=== PATIENT | female | born 1950 | race Caucasian/White ===

== ENCOUNTER 2018-05-06 07:00 | Inpatient (IN) ==
[2018-06-10] MEDS ORDERED: ceFAZolin Inj 2gm (Premix) 2 GM/50 ML BAG IV ONE ×2 (06:00→06:11)
[2018-06-10] MEDS ORDERED: Nasal Sanitizer POPSWAB ampule 3 AMP (Nozin) PREOP DOSE ENOS SCH (06:00)
[2018-06-10] MEDS ORDERED: Tranexamic Acid 1,000 MG in Sodium Chloride 0.9% 100 ML IV SCH (06:00)
[2018-06-10] MEDS ORDERED: BUPivacaine Liposome/PF (Exparel) Inj 20ml vial INFIL ONE ×2 (06:00→09:22)
[2018-06-10] MEDS ORDERED: LIDOCAINE W/ SODIUM BICARB 0.5 ML SYR SUBD ONE (06:00)
[2018-06-10] MEDS ORDERED: Ketorolac Inj 30 MG, Morphine Inj (Ortho Cocktail) 5 MG, BUPivacaine Inj 0.25% PF 150 MG SPLASH ONE ×3 (06:00)
[2018-06-10] MEDS ORDERED: Lactated Ringers 1,000 ML PRIMARY IV ONE (06:12)
[2018-06-10] MEDS ORDERED: LIDOCAINE W/ SODIUM BICARB 0.5 ML SYR ONE (06:12)
[2018-06-10] MEDS ORDERED: fentaNYL Inj 250 MCG/5 ML VIAL ONE (09:09)
[2018-06-10] MEDS ORDERED: DEXAMETHASONE PF 10 MG/1 ML VIAL ONE (09:09)
[2018-06-10] MEDS ORDERED: Propofol 2,000 MG/200 ML VIAL IV ONE (09:10)
[2018-06-10] MEDS ORDERED: SUCCINYLCHOLINE CHLORIDE 20 MG/1 ML - 10 ML ONE (09:11)
[2018-06-10] MEDS ORDERED: ROCURONIUM 10 MG/1 ML - 5 ML VIAL IVP ONE (09:11)
[2018-06-10] MEDS ORDERED: MIDAZOLAM HCL 2 MG/2 ML VIAL ONE (09:17)
[2018-06-10] MEDS ORDERED: Sodium Chloride 0.9% vial 40 ML ONE (09:21)
[2018-06-10] MEDS ORDERED: Gentamicin Inj 40 MG/ML VIAL ONE (09:21)
[2018-06-10] MEDS ORDERED: HEPARIN 10,000 UNIT/1 ML ONE (09:21)
[2018-06-10] MEDS ORDERED: Sodium Chloride 0.9% 2,000 ML PRIMARY IV ONE (09:25)
[2018-06-10] MEDS ORDERED: Sodium Chloride 0.9% 250 ML ONE ×2 (09:25→13:59)
[2018-06-10] MEDS: Lactated Ringers 1,000 ML PRIMARY IV SCH ×3 (09:44→16:21)
[2018-06-10 09:49] LABS: BILIRUBIN,URINE NEGATIVE (NEG); CLARITY,URINE CLEAR (CLEAR); COLOR,URINE YELLOW (Y); GLUCOSE, URINE (UA) NEGATIVE (NEG); OCCULT BLOOD,URINE Trace-intact (NEG); PH,URINE 7.5 (5.0-8.5); PROTEIN,URINE NEGATIVE (NEG); UROBILINOGEN,URINE 0.2 EU/dL (0.2)
[2018-06-10 09:50] LABS: URINE SAMPLE TYPE CLEAN CATCH URINE
[2018-06-10 09:53] LABS: BACTERIA,URINE RARE; RBC,URINE 0-1 /hpf; SQUAMOUS EPITHELIAL CELL,UR RARE; WBC,URINE RARE
[2018-06-10 10:21] LABS: BASOPHILS # (AUTO) 0.04 10*3/UL; EOSINOPHILS # (AUTO) 0.05 10*3/UL; EOSINOPHILS % (AUTO) 1.3 % (0-8); Hematocrit [HCT] 42.1 % (37.0-47.0); Hemoglobin [HGB] 14.1 g/dL (12.0-16.0); LYMPHOCYTES # (AUTO) 1.28 10*3/uL; MEAN CORPUSCULAR HEMOGLOBIN 32.1 PG (27-31); MEAN CORPUSCULAR HGB CONC 33.5 g/dL (33-37); MEAN CORPUSCULAR VOLUME 95.9 FL (81-99); MEAN PLATELET VOLUME 10.3 FL (7.4-12.2); MONOCYTES # (AUTO) 0.37 10*3/UL (0.3-0.8); MONOCYTES % (AUTO) 9.4 % (5-15); NEUTROPHILS % (AUTO) 55.8 % (50-80); PLATELET MORPHOLOGY COMMENT NORMAL MORPHOLOGY (NORM); RBC MORPHOLOGY COMMENT NORMAL MORPHOLOGY (NORM); RED BLOOD COUNT 4.39 10^6/uL (4.20-5.40); WBC MORPHOLOGY COMMENT NORMAL MORPHOLOGY (NORM)
--- NOTE | 2018-06-10 10:26 | CRNA.PROGR ---
Anesthesia Recovery Phase I - Post Anesthesia Evaluation Patient's Condition on Arrival in Phase I: Stable Patient's Condition on Arrival in Phase II: Stable Pain Level: 2
[2018-06-10] MEDS ORDERED: PROMETHAZINE 25 MG/1 ML VIAL IM PRN (10:30)
[2018-06-10] MEDS ORDERED: Lactated Ringers 1,000 ML PRIMARY IV SCH (10:30)
[2018-06-10] MEDS ORDERED: Sodium Chloride 0.9% 1,000 ML PRIMARY IV SCH (10:30)
[2018-06-10] MEDS ORDERED: LIDOCAINE W/ SODIUM BICARB 0.5 ML SYR SUBD PRN (10:30)
[2018-06-10] MEDS ORDERED: ONDANSETRON 4 MG/2 ML VIAL IVP PRN ×2 (10:30→15:20)
[2018-06-10] MEDS ORDERED: fentaNYL Inj 100 MCG/2 ML VIAL IVP PRN (10:30)
[2018-06-10 10:31] LABS: BLOOD UREA NITROGEN 21 mg/dL (7-22); SERUM ALBUMIN 4.1 g/dL (3.5-4.8)
[2018-06-10] MEDS ORDERED: TRANEXAMIC ACID 1,000 MG / 10 ML VIAL ONE (11:39)
[2018-06-10] MEDS ORDERED: ONDANSETRON 4 MG/2 ML VIAL ONE (12:50)
[2018-06-10] MEDS ORDERED: BUPivacaine Inj 0.5% PF (5mg/ml) 30ml vial ONE (13:17)
--- NOTE | 2018-06-10 14:35 | CRNA.PROGR ---
Anesthesia Time - Procedure/Recovery Time Start Date: 06/10/18 End Date: 06/10/18 Anesthesia : Time In: 10:55 Anesthesia : Time Out: 14:33 Anesthesia : Total Time: 218 - Total Anesthesia Time Total Anesthesia Time (minutes): 218 - Other Weight: 75.75 kg Height: 5 ft 6 in Body Mass Index (BMI): 26.9 Physical Status: P2 Anesthesia Type: General Anesthesia : ET
[2018-06-10] MEDS ORDERED: fentaNYL Inj 100 MCG/2 ML VIAL ONE (15:00)
--- NOTE | 2018-06-10 15:10 | ORTHO.OP ---
- - -: See Dictated Operative Report Procedure Codes - Hip Procedures Primary Hip Procedure: 08223 : BERNADETTE (karthik walker assisted)
[2018-06-10] MEDS ORDERED: IBUPROFEN 400 MG TABLET PO PRN (15:20)
[2018-06-10] MEDS ORDERED: Prochlorperazine Tab 10 MG TAB PO PRN (15:20)
[2018-06-10] MEDS ORDERED: MAG HYDROX/AL HYDROX/SIMETH 30 ML SUSP PO PRN (15:20)
[2018-06-10] MEDS ORDERED: BISACODYL 10 MG SUPPOSITORY RECTAL PRN (15:20)
[2018-06-10] MEDS ORDERED: diphenhydrAMINE 25 MG CAPSULE PO PRN (15:20)
[2018-06-10] MEDS ORDERED: HYDROmorphone 2 MG/1 ML IVP PRN (15:20)
[2018-06-10] MEDS ORDERED: Ondansetron ODT Tab 8 MG TAB PO PRN (15:20)
[2018-06-10] MEDS ORDERED: BISACODYL 5 MG TABLET PO PRN (15:20)
--- NOTE | 2018-06-10 17:42 | DI ---
AP PELVIS AND RIGHT HIP, 06/10/2018 11:15 AM: Clinical History: Status post right total hip replacement. Osteoarthritis. Previous Exam: 01/30/2018. Views: AP pelvis with AP and lateral views of replaced hip. Patient is status post right total hip replacement. Prosthetic joint articulates normally. Drain tube present. Reading: Status post right total hip replacement. Prosthetic joint articulates normally.
[2018-06-10] MEDS: ceFAZolin Inj 2gm (Premix) 2 GM/50 ML BAG IV SCH (19:06)
--- NOTE | 2018-06-10 21:35 | PDOC ---
HPI - History of Present Illness Date of Service: 06/10/18 Time of Service: 18:00 Chief Complaint: right hip pain History of Present Illness: This is a very pleasant 67 YO female with osteoarthritis and HTN who has had long standing right hip pain. She opted for a BERNADETTE with Dr. Cook, see his operative report. Hospitalist service was asked to evaluate and advise and address medical issue of hypertension in the setting of the surgery. Post operatively, the patient has well controlled blood pressures. The patient has not had any chest pain, shortness of breath, but did have some nausea. She states the block has not completely worn away. Post operative hip pain is well controlled. No exacerbating factors. She notes that she avoided opiates prior to surgery, but pain was limiting her activities severely and disturbed her slee p greatly. Past Medical History Medical History: 1. HTN. 2. Osteoarthritis Surgical History: 1) ankle surgery. 2) carpal tunnel. 3) hysterectomy with incidental appendectomy Pertinent Family History: She states both her parents suffered from osteoarthritis, as do her siblings. Her brother of cancer. Past Social History: does not smoke or drink alcohol. . has a healthy daughter. retired and lives in [place], [place] Tobacco Use: Never Smoker In the Past 12 Months, Have Used or Abuse Any of the Following Substance: None Alcohol Use: None Medication / Allergies Home Medications: Home Medications Medication Instructions Recorded Confirmed Type Calcium Carbonate/Vitamin D3 1 ea PO DAILY tab 03/16/13 06/10/18 History [Calcium 1,000 + D3 Caplet] Glucosam/Chondroit/C/Manganese 1 ea PO DAILY cap 03/16/13 06/10/18 History [Cosamin Ds Capsule] lisinopril 10 mg tablet 10 mg PO QDAY 01/30/18 06/10/18 History Hydrochlorothiazide 12.5 mg PO DAILY 06/10/18 06/10/18 History Niacinamide [Niacin] 1 tab PO DAILY 06/10/18 06/10/18 History Potassium Gluconate [Potassium] 1 tab PO DAILY 06/10/18 06/10/18 History Allergies/Adverse Reactions: Allergies Allergy/AdvReac Type Severity Reaction Status Date / Time Latex, Natural Rubber Allergy Rash Verified 06/10/18 15:22 metal Allergy Mild RASH Uncoded 06/10/18 15:22 rubber Allergy Mild RASH Uncoded 06/10/18 15:22 Review of Systems - Constitutional Constitutional: REPORTS: General Health Good - Respiratory Respiratory: REPORTS: Negative System Review - Cardiovascular Cardiovascular: REPORTS: Negative System Review - Gastrointestinal Gastrointestinal / Abdominal: REPORTS: Nausea - Genitourinary Genitourinary: REPORTS: Urgency (chronic, not interested in treatment with pills.) - Neurological Neurologic: REPORTS: Negative System Review Exam - Vitals Vital Signs: Vital Signs Temperature 98.5 F Temperature Source Temporal Artery Scan Pulse Rate [Pulse Oximeter] 91 Pulse Rate 64 Respiratory Rate 18 Blood Pressure [Right Arm] 154/86 Blood Pressure 155/75 Pulse Ox 93 Oxygen Flow Rate 2 Oxygen Delivery Method Nasal Cannula Height 5 ft 6 in Weight 167 lb - General General Appearance: No Acute Distress, Cooperative - Head Head Exam: Normal Inspection, Normocephalic, Atraumatic - Eye Eye Exam: POSITIVE: No Scleral Icterus - ENT ENT Exam: POSITIVE: Mucous Membranes Moist - Neck Neck Exam: Normal Inspection, No Tenderness, No Lymphadenopathy, No Thyromegaly, JVP is not Raised - Respiratory Respiratory Exam: POSITIVE: Clear to Auscultation - Bilaterally, Breathing Non Labored - Cardiovascular Cardiovascular Exam: POSITIVE: RRR, No Murmur, No Clicks, No Gallops, No Rubs, No JVD - GI/Abdominal GI/Abdominal Exam: POSITIVE: Normal Bowel Sounds, Non Tender, Non Distended, Soft - Rectal Rectal Exam: POSITIVE: Deferred - External Exam: POSITIVE: Deferred Exam: POSITIVE: Deferred - Extremities Extremities Exam: POSITIVE: No Clubbing Present, No Edema Present, No Cyanosis Present Additional Extremities Exam Details: right anterior hip incision is C/D/I, dressed. - Neurological Neurological Exam: POSITIVE: Alert, Oriented x 3, No Facial Droop, Speech Intact / Clear Results - Labs CBC and BMP: 06/10/18 10:17 06/10/18 10:17 Additional Lab Results: Laboratory Results 06/10/18 06/10/18 06/10/18 09:05 10:17 10:17 WBC 3.94 L RBC 4.39 Hgb 14.1 Hct 42.1 MCV 95.9 MCH 32.1 H MCHC 33.5 RDW Std Deviation 46.1 RDW Coeff of Mira 13.4 Plt Count 252 MPV 10.3 Immature Gran % (Auto) 0 Neut % (Auto) 55.8 Lymph % (Auto) 32.5 Crane % (Auto) 9.4 Eos % (Auto) 1.3 Baso % (Auto) 1.0 Immature Gran # (Auto) 0 Neut # (Auto) 2.20 Lymph # (Auto) 1.28 Crane # (Auto) 0.37 Eos # (Auto) 0.05 Baso # (Auto) 0.04 WBC Morphology Comment Normal morphology Plt Morphology Comment Normal morphology RBC Morph Comment Normal morphology Sodium 141 Potassium 3.8 Chloride 108 Carbon Dioxide 24 Anion Gap 9 BUN 21 Creatinine 0.5 Estimated GFR > 60 BUN/Creatinine Ratio 42.00 H Glucose 95 Calculated Osmolality 294.0 H Calcium 9.4 Total Bilirubin 0.6 AST 22 ALT 19 Alkaline Phosphatase 70 Total Protein 7.3 Albumin 4.1 Globulin 3.2 Albumin/Globulin Ratio 1.20 L Ur Collection Type Clean catch urine Urine Color Yellow Urine Clarity Clear Urine pH 7.5 Ur Specific [place] 1.015 Urine Protein Negative Urine Glucose (UA) Negative Urine Ketones Negative Urine Occult Blood Trace-intact H Urine Nitrate Negative Urine Bilirubin Negative Urine Urobilinogen 0.2 Ur Leukocyte Esterase Negative Urine RBC 0-1 Urine WBC Rare Ur Squamous Epith Cells Rare Ur Renal Epithelial Cell None Urine Crystals None Urine Bacteria Rare Urine Casts None Urine Mucus None Urine Trichomonas None Urine Yeast None Ur Culture Indicated? Culture not set Blood Type Antibody Screen Crossmatch 06/10/18 10:17 WBC RBC Hgb Hct MCV MCH MCHC RDW Std Deviation RDW Coeff of Mira Plt Count MPV Immature Gran % (Auto) Neut % (Auto) Lymph % (Auto) Crane % (Auto) Eos % (Auto) Baso % (Auto) Immature Gran # (Auto) Neut # (Auto) Lymph # (Auto) Crane # (Auto) Eos # (Auto) Baso # (Auto) WBC Morphology Comment Plt Morphology Comment RBC Morph Comment Sodium Potassium Chloride Carbon Dioxide Anion Gap BUN Creatinine Estimated GFR BUN/Creatinine Ratio Glucose Calculated Osmolality Calcium Total Bilirubin AST ALT Alkaline Phosphatase Total Protein Albumin Globulin Albumin/Globulin Ratio Ur Collection Type Urine Color Urine Clarity Urine pH Ur Specific [place] Urine Protein Urine Glucose (UA) Urine Ketones Urine Occult Blood Urine Nitrate Urine Bilirubin Urine Urobilinogen Ur Leukocyte Esterase Urine RBC Urine WBC Ur Squamous Epith Cells Ur Renal Epithelial Cell Urine Crystals Urine Bacteria Urine Casts Urine Mucus Urine Trichomonas Urine Yeast Ur Culture Indicated? Blood Type A POSITIVE Antibody Screen Negative Crossmatch See Detail Assessment and Plan - Patient Problems (1) Hypertension Current Visit: Yes Status: Acute Code(s): I10 - Essential (primary) hypertension Qualifiers: Hypertension type: essential hypertension Qualified Code(s): I10 - Essential (primary) hypertension (2) Hypercholesterolemia Current Visit: Yes Status: Acute Code(s): E78.00 - Pure hypercholesterolemia, unspecified (3) Osteoarthritis Current Visit: Yes Status: Acute Code(s): M19.90 - Unspecified osteoarthritis, unspecified site Qualifiers: Osteoarthritis location: hip Osteoarthritis type: primary Laterality: bilateral Qualified Code(s): M16.0 - Bilateral primary osteoarthritis of hip (4) S/P total hip arthroplasty Current Visit: Yes Status: Acute Code(s): Z96.649 - Presence of unspecified artificial hip joint Qualifiers: Laterality: right Qualified Code(s): Z96.641 - Presence of right artificial hip joint - Assessment / Plan Additional Assessment/Plan Details: labs in AM to check electrolytes and H and H DVT prophylaxis as per orthopedics PT and OT pain medications for acute post operative pain at this point, the patient appears euvolemic. I think with SBP's in the 150's, it would be reasonable to resume ACEI and HCTZ. recommend also checking blood pressures with vital signs. thank you for consult, it will be our pleasure to assist in this patient's care during her hospital stay.
[2018-06-10] MEDS: DOCUSATE 100 MG CAPSULE PO SCH (21:48)
[2018-06-11] MEDS: ceFAZolin Inj 2gm (Premix) 2 GM/50 ML BAG IV SCH (02:49)
[2018-06-11] MEDS: Lactated Ringers 1,000 ML PRIMARY IV SCH ×2 (02:50→12:45)
[2018-06-11] MEDS: HYDROcodone-APAP 7.5 MG-325 MG TABLET PO PRN ×4 (03:11→20:45)
[2018-06-11 04:58] LABS: Hematocrit [HCT] 33.8 % (37.0-47.0); MEAN CORPUSCULAR HEMOGLOBIN 31.7 PG (27-31); MEAN CORPUSCULAR HGB CONC 32.5 g/dL (33-37); MEAN CORPUSCULAR VOLUME 97.4 FL (81-99); MEAN PLATELET VOLUME 10.7 FL (7.4-12.2); RED BLOOD COUNT 3.47 10^6/uL (4.20-5.40)
[2018-06-11 05:06] LABS: BLOOD UREA NITROGEN 15 mg/dL (7-22)
--- NOTE | 2018-06-11 07:50 | CRNA.PROGR ---
Anesthesia Note - Progress Notes Anesthesia Progress Note: Sitting in bed eating her breakfast. She's cheerful. States she's comfortable. States pain is well controlled. Denies headache. She says she's not nauseated. States she vomited once yesterday, but not since. Rashad still in. Has not ambulated yet. Got both a Spinal and General. No apparent anesthetic difficulties. Vital Signs - Last Taken Temperature 98.3 F 06/11/18 07:35 Pulse Rate 83 06/11/18 07:35 Respiratory Rate 20 06/11/18 07:35 Blood Pressure 118/64 06/11/18 07:35 Pulse Ox 94 06/11/18 07:35 No apparent anesthetic difficulties.
[2018-06-11] MEDS ORDERED: HYDROCHLOROTHIAZIDE 12.5 MG CAPSULE PO SCH (09:00)
[2018-06-11] MEDS ORDERED: NIACINAMIDE PO SCH (09:00)
[2018-06-11] MEDS: Potassium Chloride Tab 10 MEQ TAB PO SCH (09:11)
[2018-06-11] MEDS: DOCUSATE 100 MG CAPSULE PO SCH ×2 (09:11→20:45)
[2018-06-11] MEDS: Calcium/Vit D 600mg/400u Tab 1 TAB TABLET PO SCH (09:12)
[2018-06-11] MEDS: ASPIRIN 325 MG EC TABLET PO SCH ×2 (09:12→20:45)
[2018-06-11] MEDS: LISINOPRIL 10 MG TABLET PO SCH (09:12)
[2018-06-11] MEDS: CALCIUM CARBONATE 500 MG (TUMS) CHEWABLE TABLET PO PRN (10:06)
--- NOTE | 2018-06-11 13:16 | ORTHO.PROG ---
Last Taken Vital Signs: Vital Signs - Last Taken Temperature 97.5 F 06/11/18 11:08 Pulse Rate 63 06/11/18 11:08 Respiratory Rate 20 06/11/18 11:08 Blood Pressure 113/60 06/11/18 11:08 Pulse Ox 94 06/11/18 11:08 Subjective: Patient notes doing well no significant pain Objective: Patient's dressings are intact drain is in place is decreasing with the amount of fluid that is coming out of this. No calf, popliteal adductor hiatus or thigh pain. Laboratory Results 06/11/18 06/11/18 04:47 04:47 WBC 11.16 H RBC 3.47 L Hgb 11.0 L Hct 33.8 L MCV 97.4 MCH 31.7 H MCHC 32.5 L RDW Std Deviation 45.8 RDW Coeff of Mira 13.3 Plt Count 210 MPV 10.7 Sodium 140 Potassium 4.3 Chloride 108 Carbon Dioxide 25 Anion Gap 7 BUN 15 Creatinine 0.5 Estimated GFR > 60 BUN/Creatinine Ratio 30.00 H Glucose 133 H Calculated Osmolality 292.0 Calcium 8.3 L VS Temperature 97.5 F 06/11/18 11:08 Temperature Source Temporal Artery Scan 06/11/18 11:08 Pulse Rate 63 06/11/18 11:08 Pulse Rhythm Regular 06/10/18 15:30 Pulse Strength Normal 06/11/18 07:00 Respiratory Rate 20 06/11/18 11:08 Blood Pressure Position Sitting 06/10/18 20:18 Blood Pressure 113/60 06/11/18 11:08 Blood Pressure Mean 77 06/11/18 11:08 Pulse Ox 94 06/11/18 11:08 Oxygen Delivery Method Nasal Cannula 06/11/18 11:08 Oxygen Flow Rate 1 06/11/18 11:08 Room Air Challenge 88 06/11/18 05:00 Weight 75.75 kg 06/10/18 15:25 Height 5 ft 6 in 06/10/18 15:25 Body Mass Index (BMI) 26.9 06/10/18 15:25 Intake and Output - 8hrs 06/10/18 06/10/18 06/11/18 06/11/18 13:59 21:59 05:59 13:59 Intake: IV 2500 / 2500 Intake Oral Amount 240 / 440 200 / 440 200 / 200 Output: Output, Drainage Amount 220 / 220 60 / 60 Output, Urinary Catheter Amount 1025 / 1025 300 / 300 Output, Urine Amount 425 / 425 Output, Estimated Blood Loss 150 / 150 Amount Other: Percent Meal Consumed Breakfast 100% Dinner 25% Drains Hemovac Negative Pressure Drain Rt hip Negative Pressure Drain right hip Hemovac Weight 75.75 kg 75.75 kg Weight Measurement Method Standing Scale Assessment: Right total hip replacement doing well Plan: Progress with physical therapy and occupational therapy. Continue with DVT prophylaxis with aspirin and pneumatic sequential devices. Patient has IV and oral medication available for pain control. Protected weightbearing with walker
--- NOTE | 2018-06-11 14:19 | PTI REPORT ---
Thank you for the referral of Clary Coronado. She was seen on 06/11/18 for an inpatient evaluation status post total hip arthroplasty. SUBJECTIVE: The patient is a 67-year-old female. The patient reports she is from [place], but the patient is going to stay in town with her sisters. She reports there are a couple of stairs to get into the home. The patient was previously independent and did not use a walker or any assistive device prior to surgery. The patient's pain is minimal. The patient lives by herself with her dog. PAST MEDICAL HISTORY: Past medical history can be found in the patient's medical record. OBJECTIVE FINDINGS: General observations: Nursing okayed treatment prior to PT. The patient was on oxygen. The patient has a Solorzano catheter and has a drain in place. Bed mobility: The patient requires min assist x1 for supine to sit transfer to edge of bed. Transfers: The patient requires contact guard assist x2 for sit to stand transfer with walker. Ambulation: The patient requires minimal cueing for gait technique with walker and contact guard assist x2 for safety. The patient's right knee tends to fall into valgus. The patient was educated on importance of taking proper heel/toe alignment steps without knee going into valgus. ASSESSMENT: The patient is a 67-year-old female that presents status post total hip. The patient will benefit from skilled therapy in order to improve overall functional mobility in order to return to prior level of function. The patient's prognosis for therapy is good. Problem List: Decreased strength Decreased functional mobility Decreased endurance Decreased range of motion Short-Term Goals: To be met by discharge from inpatient: Patient will be independent with all transfers with walker. Patient will be able to ambulate 150 feet with walker. Patient will be able to ascend and descend five stairs with walker in order to return to prior level of function. Long-Term Goals: To be met following discharge from inpatient: Patient will be seen by outpatient physical therapy. TREATMENT PLAN: Patient will be seen B.I.D during the week and one time per day over the weekend as an inpatient for therapeutic exercise, functional activity, neuromuscular reeducation, gait training, range of motion, and modalities as needed. INITIAL TREATMENT: Treatment today consisted of the initial evaluation. The patient was instructed to perform transfer to her chair. The patient ambulated approximately 30 feet with contact guard assist x2 and walker with no loss of balance noted. The patient was transferred to her chair with contact guard assist and left in the care of occupational therapy. JENY
[2018-06-11] MEDS: ACETAMINOPHEN 325 MG TABLET PO PRN (15:04)
--- NOTE | 2018-06-11 15:12 | OTI REPORT ---
Thank you for the referral of Clary Coronado. She was seen on 06/11/18 for an occupational therapy inpatient evaluation status post total hip arthroplasty. SUBJECTIVE: The patient is a 67-year-old female. The patient reports she is in a little bit of pain but overall making progress. The patient lives in [place]. She is going to be staying with some of her family here in town. PAST MEDICAL HISTORY: Past medical history can be found in the patient's medical record. OBJECTIVE FINDINGS: General observations: The patient's hip precautions include no straight legs and no over extension of the hip. Bed mobility: The patient was able to transfer from supine to sit with min assist. Transfers: The patient was able to transfer from sit to stand with min assist. She does tend to have a little bit of weakness in that right lower extremity. Activities of daily living: The patient was instructed in adaptive devices. She reports that she has a critical care rn as well as a sock aide. She did not have the critical care rn with her so we had her use a practice critical care rn to doff her socks. We then educated the patient on how to don clothes using a critical care rn. The patient did have a sock aide that was given to her and we did have her practice using that as she did have questions on its use. The patient was able to don the sock on the sock aide and don the sock on her foot. ASSESSMENT: The patient would benefit from at least one more session. She is moving a little bit slower and needed some increased time to process the use of adaptive devices. We want to make sure she can perform all dressing tasks independently. It did hurt the patient's hip to bend at approximately mid calf. It will be beneficial for her to use her adaptive devices. Short-Term Goals: To be met by discharge from inpatient: Patient will be able to dress lower extremities with modified independence. Patient will be able to complete all functional transfers with modified independence. Patient will be able to complete a toilet transfer with modified independence. Long-Term Goals: To be met following discharge from inpatient: Patient will be independent with all functional activities and ADLs. TREATMENT PLAN: Patient will be seen B.I.D during the week and one time per day over the weekend as an inpatient to address the above goals and objectives. INITIAL TREATMENT: Treatment today consisted of the initial evaluation followed by instruction in adaptive devices and having the patient practice using the critical care rn and the sock aide. JENY
--- NOTE | 2018-06-11 15:30 | PDOC(PROG) ---
Date of Service: 06/11/18 Time of Service: 15:26 Interval History: patient seen and evaluated earlier no chest pain, SOB, N/V hip sore but not overly painful. was able to ambulate to the door this AM. Objective : Data - Labs CBC and BMP: 06/11/18 04:47 06/11/18 04:47 Objective : Exam - General General Appearance: No Acute Distress, Cooperative Additional General Exam Details: Vital Signs - Last Taken Temperature 97.5 F 06/11/18 11:08 Pulse Rate 63 06/11/18 11:08 Respiratory Rate 20 06/11/18 11:08 Blood Pressure 113/60 06/11/18 11:08 Pulse Ox 94 06/11/18 11:08 - Eye Eye Exam: No Scleral Icterus - ENT ENT Exam: Mucous Membranes Moist - Neck Neck Exam: JVP is not Raised - Respiratory Respiratory Exam: Clear to Auscultation - Bilaterally, Breathing Non Labored - Cardiovascular Cardiovascular Exam: RRR, No Murmur, No Clicks, No Gallops, No Rubs, No JVD - GI/Abdominal GI/Abdominal Exam: Normal Bowel Sounds, Non Tender, Non Distended, Soft - Extremities Extremities Exam: No Clubbing Present, No Edema Present, No Cyanosis Present - Neurological Neurological Exam: Alert, Oriented x 3, No Facial Droop, Speech Intact / Clear Assessment and Plan - Patient Problems (1) Hypertension Current Visit: Yes Status: Acute Code(s): I10 - Essential (primary) hypertension Qualifiers: Hypertension type: essential hypertension Qualified Code(s): I10 - Essential (primary) hypertension (2) Hypercholesterolemia Current Visit: Yes Status: Acute Code(s): E78.00 - Pure hypercholesterolemia, unspecified (3) Osteoarthritis Current Visit: Yes Status: Acute Code(s): M19.90 - Unspecified osteoarthritis, unspecified site Qualifiers: Osteoarthritis location: hip Osteoarthritis type: primary Laterality: bilateral Qualified Code(s): M16.0 - Bilateral primary osteoarthritis of hip (4) S/P total hip arthroplasty Current Visit: Yes Status: Acute Code(s): Z96.649 - Presence of unspecified artificial hip joint Qualifiers: Laterality: right Qualified Code(s): Z96.641 - Presence of right artificial hip joint - Assessment / Plan Additional Assessment/Plan Details: PT and OT blood pressures well controlled, no change in BP medications DVT prophylaxis as per orthopedics. pain control
--- NOTE | 2018-06-11 16:04 | PT.PROG ---
Progress Note Progress Note: S. Patient stated that she is feeling alright this afternoon. O. Patient ambulated 30 feet to the wheelchair and was wheeled to the therapy gym where she had heat to their hip to decrease pain. Patient then performed exercises in the form of; heel slides, quad sets, glute sets, ankle pumps, short arc quads, heel toe raises, , seated long arc quads, marches, ball squeezes, clam shells, resisted knee flexion, heel toe raises, all x 10 bilaterally with red thera bands, Patient then performed sit to stands x 10, Patient then ambulated 80 feet to the wheelchair and was wheeled back to her room and was left with call light and alarm. A. Patient tolerated therapy well, she was able to perform all exercises with no increase in pain or problems. Patient continues to require min assist with transfers and ambulation, she would continue to benefit from skilled therapy to increase strength, endurance, and safety at this time. P. Continue POC.
[2018-06-12] MEDS: ACETAMINOPHEN 325 MG TABLET PO PRN (05:10)
[2018-06-12 05:18] LABS: Hematocrit [HCT] 33.7 % (37.0-47.0); Hemoglobin [HGB] 10.5 g/dL (12.0-16.0); MEAN CORPUSCULAR HEMOGLOBIN 31.1 PG (27-31); MEAN CORPUSCULAR HGB CONC 31.2 g/dL (33-37); MEAN CORPUSCULAR VOLUME 99.7 FL (81-99); MEAN PLATELET VOLUME 11.3 FL (7.4-12.2); RED BLOOD COUNT 3.38 10^6/uL (4.20-5.40)
[2018-06-12 05:27] LABS: BLOOD UREA NITROGEN 24 mg/dL (7-22)
[2018-06-12] MEDS: LISINOPRIL 10 MG TABLET PO SCH (08:10)
[2018-06-12] MEDS: DOCUSATE 100 MG CAPSULE PO SCH ×2 (08:10→20:54)
[2018-06-12] MEDS: HYDROcodone-APAP 7.5 MG-325 MG TABLET PO PRN ×2 (08:10→12:43)
[2018-06-12] MEDS: Potassium Chloride Tab 10 MEQ TAB PO SCH (08:10)
[2018-06-12] MEDS: Calcium/Vit D 600mg/400u Tab 1 TAB TABLET PO SCH (08:10)
[2018-06-12] MEDS: HYDROCHLOROTHIAZIDE 12.5 MG CAPSULE PO SCH (08:10)
[2018-06-12] MEDS: ASPIRIN 325 MG EC TABLET PO SCH ×2 (08:10→20:54)
--- NOTE | 2018-06-12 12:00 | ORTHO.PROG ---
Last Taken Vital Signs: Vital Signs - Last Taken Temperature 98 F 06/12/18 11:09 Pulse Rate 92 06/12/18 11:09 Respiratory Rate 16 06/12/18 11:09 Blood Pressure 117/68 06/12/18 11:09 Pulse Ox 92 06/12/18 11:09 Subjective: Patient doing well today able to do stairs with therapy Objective: The negative suction dressing is in place working no active issues motor and sensory exam is nonfocal. Patient with good motor to the lower extremities. No fluctuance or evidence of hematoma or seroma. No calf pain, popliteal adductor hiatus or thigh pain. Laboratory Results 06/12/18 06/12/18 04:24 04:24 WBC 9.51 RBC 3.38 L Hgb 10.5 L Hct 33.7 L MCV 99.7 H MCH 31.1 H MCHC 31.2 L RDW Std Deviation 49.3 RDW Coeff of Mira 13.8 Plt Count 209 MPV 11.3 Sodium 141 Potassium 4.4 Chloride 108 Carbon Dioxide 30 Anion Gap 3 L BUN 24 H Creatinine 0.6 Estimated GFR > 60 BUN/Creatinine Ratio 40.00 H Glucose 101 Calculated Osmolality 295.0 H Calcium 8.3 L Vital Signs (24 hrs) 06/11/18 15:48 06/11/18 21:00 06/12/18 00:20 Temperature 97.5 F 97.8 F 99.0 F Pulse Rate [Pulse Oximeter] 85 92 87 Respiratory Rate 18 20 16 Blood Pressure [Right Arm] 96/51 111/59 120/62 Pulse Ox 98 94 96 06/12/18 05:00 06/12/18 05:17 06/12/18 07:00 Temperature 99.0 F Pulse Rate [Pulse Oximeter] 99 Respiratory Rate 20 18 Blood Pressure [Right Arm] 150/76 Pulse Ox 92 92 06/12/18 07:49 06/12/18 11:09 Temperature 97.8 F 98 F Pulse Rate [Pulse Oximeter] 84 92 Respiratory Rate 18 16 Blood Pressure [Right Arm] 124/66 117/68 Pulse Ox 91 92 Assessment: Right total hip replacement doing well Anemia stable Plan: Continue with physical therapy and occupational therapy. Touch toe weightbearing on right. We will continue with the negative pressure dressing for a week. Continue with DVT prophylaxis with pneumatic sequentials and aspirin
--- NOTE | 2018-06-12 15:59 | PDOC(PROG) ---
Date of Service: 06/12/18 Time of Service: 15:55 Interval History: No complaints of chest pain, shortness breath, nausea or vomiting. Pain in right hip controlled. She was planning on spending some time with her sister in [place], but this set up does not sound ideal for recovery from the standpoint of being able to move and walk around with secure past with a walker. She would be interested in a swing bed Objective : Data - Labs CBC and BMP: 06/12/18 04:24 06/12/18 04:24 Objective : Exam - General General Appearance: No Acute Distress, Cooperative Additional General Exam Details: Vital Signs - Last Taken Temperature 98 F 06/12/18 11:09 Pulse Rate 92 06/12/18 11:09 Respiratory Rate 16 06/12/18 11:09 Blood Pressure 117/68 06/12/18 11:09 Pulse Ox 92 06/12/18 11:09 - Eye Eye Exam: No Scleral Icterus - ENT ENT Exam: Mucous Membranes Moist - Neck Neck Exam: JVP is not Raised - Respiratory Respiratory Exam: Clear to Auscultation - Bilaterally, Breathing Non Labored - Cardiovascular Cardiovascular Exam: RRR, No Murmur, No Clicks, No Gallops, No Rubs, No JVD - GI/Abdominal GI/Abdominal Exam: Normal Bowel Sounds, Non Tender, Non Distended, Soft - Extremities Extremities Exam: No Clubbing Present, No Edema Present, No Cyanosis Present - Neurological Neurological Exam: Alert, Oriented x 3, No Facial Droop, Speech Intact / Clear Assessment and Plan - Patient Problems (1) Hypertension Current Visit: Yes Status: Acute Code(s): I10 - Essential (primary) hypertension Qualifiers: Hypertension type: essential hypertension Qualified Code(s): I10 - Essential (primary) hypertension (2) Hypercholesterolemia Current Visit: Yes Status: Acute Code(s): E78.00 - Pure hypercholesterol emia, unspecified (3) Osteoarthritis Current Visit: Yes Status: Acute Code(s): M19.90 - Unspecified oste oarthritis, unspecified site Qualifiers: Osteoarthritis location: hip Osteoarthritis type: primary Laterality: nickolas ateral Qualified Code(s): M16.0 - Bilateral primary osteoarthritis of hip (4) S/P total hip arthroplasty Current Visit: Yes Status: Acute Code(s): Z96.649 - Presence of unspecified artificial hip joint Qualifiers: Laterality: right Qualified Code(s): Z96.641 - Presence of right artificial hip joint - Assessment / Plan Additional Assessment/Plan Details: Blood pressures well controlled. No change in antihypertensive medication. Continue pain medication as per orthopedics. DVT prophylaxis as per orthopedics. PT and OT/swing bed evaluation No need for transfusion with anemia current level. Expected blood loss post operatively
[2018-06-12] MEDS ORDERED: MAGNESIUM 400 MG/5 ML - 30 ML (MILK OF MAGNESIA) PO ONE (16:11)
[2018-06-13 04:38] VITALS: RESP 20
[2018-06-13 05:38] LABS: Hematocrit [HCT] 32.7 % (37.0-47.0); Hemoglobin [HGB] 10.2 g/dL (12.0-16.0); MEAN CORPUSCULAR HGB CONC 31.2 g/dL (33-37); MEAN CORPUSCULAR VOLUME 99.4 FL (81-99); MEAN PLATELET VOLUME 10.7 FL (7.4-12.2); RED BLOOD COUNT 3.29 10^6/uL (4.20-5.40)
[2018-06-13 05:56] LABS: BLOOD UREA NITROGEN 14 mg/dL (7-22)
[2018-06-13] MEDS: CALCIUM CARBONATE 500 MG (TUMS) CHEWABLE TABLET PO PRN (07:07)
[2018-06-13] MEDS: HYDROCHLOROTHIAZIDE 12.5 MG CAPSULE PO SCH (07:07)
[2018-06-13] MEDS: Potassium Chloride Tab 10 MEQ TAB PO SCH (08:31)
[2018-06-13] MEDS: Calcium/Vit D 600mg/400u Tab 1 TAB TABLET PO SCH (08:31)
[2018-06-13] MEDS: ACETAMINOPHEN 325 MG TABLET PO PRN (08:32)
[2018-06-13] MEDS: ASPIRIN 325 MG EC TABLET PO SCH (08:32)
[2018-06-13] MEDS: LISINOPRIL 10 MG TABLET PO SCH (08:32)
[2018-06-13] MEDS: DOCUSATE 100 MG CAPSULE PO SCH (08:32)
[2018-06-13] MEDS ORDERED: POLYETHYLENE GLYCOL 3350 17 GM POWDER PO ONE (09:00)
--- NOTE | 2018-06-13 12:04 | PT.PROG ---
Progress Note Progress Note: S. Patient stated that she is feeling alright this morning, she is concerned about getting home. O. Patient ambulated 175 feet to the therapy gym where she had heat to her hip to decrease pain. Patient then performed exercises in the form of; heel slides, quad sets, glute sets, ankle pumps, short arc quads, heel toe raises, seated long arc quads, marches, ball squeezes, clam shells, resisted knee flexion, heel toe raises, all x 10 bilaterally with red thera bands, Patient then performed sit to stands x 10 Patient used the nu-step x 8 minutes then ambulated 175 feet to her room and was left with call light and alarm. A. Patient tolerated therapy well, she was able to perform all exercises with no increase in pain or problems. Patient continues to require min assist with transfers and ambulation, she would continue to benefit from skilled therapy to increase strength, endurance, and safety at this time. P. Continue POC.
--- NOTE | 2018-06-13 13:44 | DCSUMMARY ---
Hospitalization Summary Admit Date: 06/10/2018 Discharge Date: 06/13/18 Primary Diagnosis:: status post right total hip arthroplasty Hospital Course: Very pleasant 67-year-old female with terminal Liu osteoarthritis in the right hip. She presented on 06/10/[address] Cook to have anterior approach total hip arthroplasty done. See his notes regarding procedure performed. Postoperatively, the patient did very well with physical therapy and occupational therapy. She did wish to stay and continued to do therapy on the swing bed and she was excepted to do that. I think this makes some sense that she lives alone in [place], and overall there was not great surfaces available at her original planned post hospital stay rehabilitation location at her sister's in the setting that there was minimal area to and walk around, and also the outdoor area was very uneven and did not have paved or solid surface adequate to support her walker. DVT prophylaxis was managed by Dr. Cook. Pain control was adequately achieved with hydrocodone. She did have some problems constipation that resolved on the date of discharge. Patient's blood pressure medications were instituted with lisinopril and hydrochlorothiazide. Blood pressures were well controlled. Today, no complaints of chest pain, shortness breath, nausea or vomiting. Assessment and Plan: 1. As per discharge assessments noted 2. Disposition: Patient is discharged to swing bed 3. Condition on discharge, stable and improved. 4. Diet: regular diet 5. Activities: Continue PT and OT 6. Follow-Up: 1. Hospital service and Dr. Cook will continue to follow. 7. Medications at the Time of Discharge: Home Medications Medication Instructions Recorded Confirmed Type Calcium Carbonate/Vitamin D3 1 ea PO DAILY tab 03/16/13 06/10/18 History [Calcium 1,000 + D3 Caplet] Glucosam/Chondroit/C/Manganese 2 ea PO DAILY cap 03/16/13 06/11/18 History [Cosamin Ds Capsule] Niacinamide [Niacin] 500 mg PO DAILY 06/10/18 06/11/18 History Potassium Gluconate [Potassium] 1 tab PO DAILY 06/10/18 06/10/18 History Lisinopril/Hydrochlorothiazide 1 tab PO DAILY 06/11/18 06/11/18 History [Lisinopril-Hctz 10-12.5 mg Tab] Polyvinyl Alcohol [Artificial 1 drp EACH EYE BEDTIME 06/11/18 06/11/18 History Tears] Sodium Chloride [Saline Nasal 1 spr ISAURA BID 06/11/18 06/11/18 History Mclean] 8. Time, care, counseling and coordination of care for this discharge is less than 30 minutes. Exam - Vitals Vital Signs: Vital Signs Height 5 ft 6 in Weight 177 lb Vital Signs - Last Taken Temperature 97.1 F 06/13/18 09:00 Pulse Rate 76 06/13/18 09:00 Respiratory Rate 20 06/13/18 09:00 Blood Pressure 103/58 06/13/18 09:00 Pulse Ox 95 06/13/18 09:00 - General General Appearance: No Acute Distress, Cooperative - Eye Eye Exam: POSITIVE: No Scleral Icterus - ENT ENT Exam: POSITIVE: Mucous Membranes Moist - Neck Neck Exam: JVP is not Raised - Respiratory Respiratory Exam: POSITIVE: Clear to Auscultation - Bilaterally, Breathing Non Labored - Cardiovascular Cardiovascular Exam: POSITIVE: RRR, No Murmur, No Clicks, No Gallops, No Rubs, No JVD - GI/Abdominal GI/Abdominal Exam: POSITIVE: Normal Bowel Sounds, Non Tender, Non Distended, Soft - Extremities Extremities Exam: POSITIVE: No Clubbing Present, No Edema Present, No Cyanosis Present Additional Extremities Exam Details: Right hip incision is dressed, clean, dry, intact. Some bruising distally, but expected for procedure. - Neurological Neurological Exam: POSITIVE: Alert, Oriented x 3, No Facial Droop, Speech Intact / Clear - Psychiatric Psychiatric Exam: POSITIVE: Normal Affect, Normal Mood Data Peritnent Studies: 06/10/18 06/10/18 06/13/18 09:05 10:17 05:05 WBC 8.30 Hgb 10.2 L Hct 32.7 L Plt Count 215 Sodium Potassium Chloride Carbon Dioxide Anion Gap BUN Creatinine BUN/Creatinine Ratio Glucose Calculated Osmolality Calcium Total Bilirubin 0.6 AST 22 ALT 19 Alkaline Phosphatase 70 Total Protein 7.3 Albumin 4.1 Globulin 3.2 Albumin/Globulin Ratio 1.20 L Ur Culture Indicated? Culture not set 06/13/18 05:05 WBC Hgb Hct Plt Count Sodium 137 Potassium 4.2 Chloride 104 Carbon Dioxide 29 Anion Gap 4 L BUN 14 Creatinine 0.5 BUN/Creatinine Ratio 28.00 H Glucose 103 Calculated Osmolality 284.0 Calcium 8.1 L Total Bilirubin AST ALT Alkaline Phosphatase Total Protein Albumin Globulin Albumin/Globulin Ratio Ur Culture Indicated? Procedures: [address] [facility] [place] [address] PH: DD: [phone] FAX: [phone] ~DIAGNOSTIC IMAGING REPORT~ Patient: ERIC JOAQUIN : 1950 Sex: F Age: 67 Exam Name: XR HIP COMPLETE MIN 2VW U/L Exam Date: 06/10/18 Report # : [id number] CPT Code: 34973 EMR/MR #: [id number] Ordering: Javier Cook Admiting: Javier Cook MD. Primary: NONE,NONE Attending: Javier Cook MD. --- Signed AP PELVIS AND RIGHT HIP, 06/10/2018 11:15 AM: Clinical History: Status post right total hip replacement. Osteoarthritis. Previous Exam: 01/30/2018. Views: AP pelvis with AP and lateral views of replaced hip. Patient is status post right total hip replacement. Prosthetic joint articulates normally. Drain tube present. Reading: Status post right total hip replacement. Prosthetic joint articulates normally. Dictated By: 06/10/18 1736 BEBA RASHEED MD. Signed By: 06/10/18 1742 BEBA RASHEED MD. Patient Problems - Patient Problem List (1) S/P total hip arthroplasty Current Visit: Yes Status: Acute Code(s): Z96.649 - Presence of unspecified artificial hip joint Qualifiers: Laterality: right Qualified Code(s): Z96.641 - Presence of right artificial hip joint Category: Surgical (2) Hypertension Current Visit: Yes Status: Acute Code(s): I10 - Essential (primary) hypertension Qualifiers: Hypertension type: essential hypertension Qualified Code(s): I10 - Essential (primary) hypertension Category: Medical (3) Hypercholesterolemia Current Visit: Yes Status: Acute Code(s): E78.00 - Pure hypercholesterolemia, unspecified Category: Medical (4) Osteoarthritis Current Visit: Yes Status: Acute Code(s): M19.90 - Unspecified osteoarthritis, unspecified site Qualifiers: Osteoarthritis location: hip Osteoarthritis type: primary Laterality: bilateral Qualified Code(s): M16.0 - Bilateral primary osteoarthritis of hip Category: Medical
--- NOTE | 2018-06-13 15:45 | PT AM DAY ---
Diagnosis : Total Hip Arthroplasty AM - Physical Therapy S: The patient reports no new changes. O: The patient ambulated all the way down to the therapy gym where she received an application of moist heat pack x15 minutes including set up to the hip. She performed open chain exercises with the exception of leg raises as they are contraindicated. She performed sit to stands, boxes, transfers, and stairs. A: The patient did extremely well in all of these activities today. She is probably ready to go home but will be staying with her sister here [place] [facility] and currently the roads are closed. As soon as they dig out and open, she will probably meet the criteria for discharge. P: Continue seeing patient BID during the week and one time per day over the weekend for transfers, ambulation, and range of motion/strengthening exercises. JENY
--- NOTE | 2018-06-13 16:15 | PT PM DAY ---
Diagnosis : Total Hip Arthroplasty PM - Physical Therapy S: The patient rates her pain as a 1 to 2/10 on the verbal analog scale (0=no pain, 10=worst pain) and seems to be doing very well. O: The patient ambulated to the physical therapy department with stand by assist of one. She participated in all closed chain activities very well including stairs, ambulation distance, and change of direction. A: The patient seems to be doing very well with her safety issues. At this time she has met her requirements for discharge and is currently awaiting the roads to open so that she may go home. P: Continue seeing patient BID during the week and one time per day over the weekend until discharge. JENY
[2018-06-13 17:06] VITALS: BP 108/63; TEMP 97.9; O2SAT 90
--- NOTE | 2018-06-16 14:57 | OT AM DAY ---
Diagnosis : Total Hip Arthroplasty AM - Occupational Therapy S: The patient reports she hadn't really used a plastic boat buffer or sock aide before coming here and she did want to practice again. O: The patient was sitting in chair upon the therapist's arrival. We had the patient practice doffing socks with plastic boat buffer and don pants with plastic boat buffer. The patient was able to stand with contact guard assist to pull pants from knee to waist level. The patient was able to sit back while following hip precautions and use sock aide with min assist. The patient still struggles with using sock aide independently. A: The patient may benefit from one more session to practice use of sock aide. The patient's standing abilities are improving with her balance. P: Continue seeing patient BID during the week and one time per day over the weekend until discharge. OMARD
== END 2018-06-13 17:08 | disposition swing bed (61) | DRG 470 ==
LOC: OPS 06-10 09:26 → MED/SURG 06-10 15:19
PROVIDERS: ADMIT Orthopaedic Surgery; ATTEND Orthopaedic Surgery